=== PATIENT | female | born 1985 | race American Indian/Alaskan Native ===

== ENCOUNTER 2019-04-27 11:18 | Emergency (ER) | payer MEDICAID ==
[2019-04-27 11:31] VITALS: BP 120/82
--- NOTE | 2019-04-27 11:49 | Emergency Department Report ---
Chief Complaint: Pain General Stated Complaint: LEG PAIN Time Seen by Provider: 04/27/19 11:44 - HPI History of Present Illness: 33 y/o female that is 6 months preg comes in complaining of varicoe vein pain that are burning. She discussed with her OB and her PCP. Has not taking anything for pain. Has started compression socks. - Exam Vital Signs: Vital Signs 04/27/19 11:29 Temperature 98.3 F Pulse Rate 74 Respiratory 18 Rate Blood Pressure 120/82 O2 Sat by Pulse 99 Oximetry Physical Exam: AxO times 3 NAD. left leg has several broke veins in the calf no swelling or redness. MSE screening note: Focused history and physical exam performed. Due to findings the following was ordered: Referral to her per OB can take Tylenol for pain ED Disposition for MSE Clinical Impression: Varicose veins of both lower extremities with pain Disposition: Z-07 MED SCREENING EXAM-LEFT Is pt being admited?: No Does the pt Need Aspirin: No Condition: Stable Referrals: KIRSTEN DOS SANTOS MD [Primary Care Provider] - 3-5 Days Your,provider [Other] - 3-5 Days
== END 2019-04-27 11:45 | disposition left against medical advice (07) ==
LOC: ED 11:18
DX: I83.12 Varicose veins of left lower extremity with inflammation (principal); I83.11 Varicose veins of right lower extremity with inflammation; Z88.0 Allergy status to penicillin
CPT/HCPCS: 99282

== ENCOUNTER 2019-07-21 13:09 | Outpatient (CLI) | payer MEDICAID ==
[2019-07-21 13:35] VITALS: BP 130/84
--- NOTE | 2019-07-21 17:12 | Ultrasound Report ---
ULTRASOUND OBSTETRIC Indication: No care Findings: There is a single intrauterine . BPD = 9.1 cm = 36 weeks, 5 day(s). Head circumference = 33.7 cm = 38 weeks, 4 day(s). Abdominal circumference = 35.1 cm = 39 weeks, 0 day(s). Femur length = 7.3 cm = 37 weeks, 2 day(s). Overall estimated sonographic age = 37 weeks, 6 day(s). heart rate is 130 beats per minute. Estimated weight is 3447 grams position is cephalic. Placenta is posterior on maternal left and grade 2 . Amniotic fluid volume appears normal. Amniotic fluid index is 13.4 cm Impression: 1. Single living intrauterine with estimated sonographic age of 37 weeks, 6 day(s). 2. No sonographic abnormality identified. Signer Name: Anibal Espino MD Signed: 07/21/2019 5:07 PM Workstation Name: [id number]
--- NOTE | 2019-07-21 17:12 | Ultrasound Report ---
Biophysical profile INDICATION: No care COMPARISON: None FINDINGS: breathing movement: 2/2 movement: 2/2 posture and tone: 2/2 Qualitative amniotic fluid volume: 2/2 IMPRESSION: Total score for biophysical profile is 8/8 heart rate is 132 bpm Signer Name: Anibal Espino MD Signed: 07/21/2019 5:08 PM Workstation Name: [id number]
== END 2019-07-21 15:26 | disposition home or self-care (01) ==
LOC: TRG 13:09
PROVIDERS: ATTEND Obstetrics & Gynecology
DX: O47.1 False labor at or after 37 completed weeks of gestation (principal); Z3A.37 37 weeks gestation of pregnancy; Z87.891 Personal history of nicotine dependence
CPT/HCPCS: 76816; 76819

== ENCOUNTER 2019-07-23 14:05 | Outpatient (CLI) | payer MEDICAID ==
[2019-07-23 15:45] VITALS: BP 131/86
== END 2019-07-23 16:06 | disposition home or self-care (01) ==
LOC: TRG 14:05
PROVIDERS: ATTEND Obstetrics & Gynecology
DX: O47.1 False labor at or after 37 completed weeks of gestation (principal); Z3A.30 30 weeks gestation of pregnancy
CPT/HCPCS: 59025

== ENCOUNTER 2019-07-23 20:48 | Inpatient (IN) | payer MEDICAID ==
[2019-07-23] MEDS ORDERED: MINERAL OIL 30 ML ORAL LIQD PO PRN (22:17)
[2019-07-23] MEDS ORDERED: ePHEDrine SULFATE 50 MG/1 ML INJ IV PRN (22:17)
[2019-07-23] MEDS ORDERED: TERBUTALINE 1 MG/1 ML INJ SUB-Q PRN (22:17)
[2019-07-23] MEDS ORDERED: TERBUTALINE 1 MG/1 ML INJ IVP PRN (22:17)
[2019-07-23] MEDS ORDERED: FAMOTIDINE 20 MG/2 ML INJ IV ONE (22:21)
[2019-07-23] MEDS ORDERED: BICITRA ORAL LIQD 30ML PO PRN (22:22)
[2019-07-23] MEDS ORDERED: LIDOCAINE (2%) 20 MG/1 ML VIAL 20 ML MDV INFILTRATI ONE (22:37)
[2019-07-23 22:42] LABS: Hematocrit 36.1 % (30.3-42.9); Hemoglobin 12.5 gm/dl (10.1-14.3); Mean Corpuscular HGB Conc 35 % (30-34); Mean Corpuscular Volume 96 fl (79-97); Platelet Count 204 K/mm3 (140-440); Red Blood Count 3.76 M/mm3 (3.65-5.03); Red Cell Distribution Width 13.7 % (13.2-15.2)
[2019-07-23] MEDS ORDERED: OXYTOCIN 20 UNIT/1000ML DRIP 20 UNITS/1,000 ML BAG IV SCH (23:00)
[2019-07-23] MEDS ORDERED: DINOPROSTONE 10 MG VAG SUPP VG ONE (23:17)
[2019-07-24] MEDS ORDERED: BUTORPHANOL 2 MG/1 ML INJ ONE (03:50)
[2019-07-24] MEDS ORDERED: BUTORPHANOL 2 MG/1 ML INJ IV ONE ×2 (03:52→11:08)
[2019-07-24] MEDS: LACTATED RINGERS 1,000 ML IV SCH ×3 (04:00→19:24)
--- NOTE | 2019-07-24 09:21 | History and Physical Report ---
History of Present Illness Date of examination: 07/24/19 Date of admission: 07/23/19 20:48 Chief complaint: Induction of labor History of present illness: 33yo G 6 P 3 0 2 3 @ 40 weeks 3 days here for scheduled IOL. She reports positive movements and uterine contractions. She denies vaginal bleeding or loss of fluid. She is a [facility] patient who initiated care at 6 weeks gestation. Her care was complicated by h/o schizophrenia (managed by [facility]), cigarette smoking, vitamin D deficiency, genital herpes (on suppressive therapy; denies recent outbreak or prodromal symptoms)and varicose veins. LABS: Opos, Antibody Screen neg, RI, VDRL NR, HBsAg neg, HIV neg, MSAFP neg, Diabetes Screen 77, GC/CT/Trich neg, GBS neg. Past History Past Medical History: no pertinent history, other (Schizophrenia, Suicide Attempt) Past Surgical History: no surgical history COMPUTER CONSULTANT History: herpes, other (Ovarian Cyst, Spontaneous ) Family/Genetic History: diabetes, hypertension Social history: single, lives with family, smoking, full code. denies: alcohol abuse, prescription drug abuse, IV drug use - Obstetrical History Expected Date of Delivery: 07/21/19 Actual Gestation: 40 Week(s) 3 Day(s) : 6 Para: 3 Hx # Term Pregnancies: 3 Number of Pregnancies: 0 Spontaneous Abortions: 2 Induced : 0 Number of Living Children: 3 #1 Infant Gender: Male year: 2,[birth year] (06/08/2009) Birthweight: 2.835 kg (6lbs 4oz) Method of Delivery: Vaginal Gestational age at delivery: 40 Complications: none #2 Infant Gender: Female year: 2,010 ([birth year]/08/2010) Birthweight: 2.722 kg (6lbs) Method of Delivery: Vaginal Gestational age at delivery: 42 Complications: none #3 Gender: Female year: 2,015 (11/05/2014) Birthweight: 3.6 kg Method of Delivery: Vaginal Complications: none Medications and Allergies Allergies Allergy/AdvReac Type Severity Reaction Status Date / Time Penicillins Allergy Itching Verified 11/05/14 10:57 FISH Allergy Swelling Uncoded 07/18/19 21:58 Home Medications Medication Instructions Recorded Confirmed Last Taken Type Pnv with Ca,No.72/Iron/FA 1 tab PO DAILY 11/05/14 07/24/19 07/23/19 10:00 History [ Plus Tablet] Valtrex 1,000 mg PO DAILY 07/24/19 07/24/19 07/23/19 History Active Meds: Active Medications Citric Acid/Sodium Citrate (Bicitra) 30 ml PO PRN PRN PRN Reason: Indigestion Ephedrine Sulfate (Ephedrine Sulfate) 10 mg IV Q2M PRN PRN Reason: Hypotension Oxytocin/Sodium Chloride (Pitocin/Ns 20 Unit/1000ml Drip) 20 units in 1,000 mls @ 125 mls/hr IV DIRECT BRANDON Oxytocin/Sodium Chloride (Pitocin/Ns 30 Unit/500ml) 30 units in 500 mls @ 1 mls/hr IV TITR BRANDON; Protocol Lactated Ringer's (Lactated Ringers) 1,000 mls @ 125 mls/hr IV DIRECT BRANDON Last Admin: 07/24/19 09:00 Dose: 1,000 mls/hr Documented by: Mineral Oil (Mineral Oil) 30 ml PO QHS PRN PRN Reason: Constipation Terbutaline Sulfate (Brethine) 0.25 mg SUB-Q ONCE PRN PRN Reason: Hyperstimulation/Hypertonicity Terbutaline Sulfate (Brethine) 0.25 mg IVP ONCE PRN PRN Reason: Hyperstimulation/Hypertonicity Review of Systems All systems: negative - Vital Signs Vital signs: Vital Signs Temp Resp 97.6 F 17 07/23/19 21:13 07/23/19 21:13 Temp Pulse Resp BP Pulse Ox 98.1 F 87 18 120/74 99 07/24/19 08:23 07/24/19 09:02 07/24/19 06:40 07/24/19 08:49 07/24/19 09:02 - Obstetrical FHR: auscultation normal, category 1 FHR comments: baseline 130, moderate variability, 15x15 accels, no decels Cervical Dilatation: 3.5 (per RN) Cervical Effacement Percentage: 60 (per RN) station: -1(per RN) Uterine Contraction Frequency (min): 2 mins Uterine Contraction Pattern: Regular Results Result Diagrams: 07/23/19 21:15 Abnormal lab results 07/23/19 Range/Units 21:15 MCH 33 H (28-32) pg MCHC 35 H (30-34) % All other labs normal. Assessment and Plan - Patient Problems (1) 40 weeks gestation of Current Visit: Yes Status: Acute (2) Encounter for induction of labor Current Visit: Yes Status: Acute Plan to address problem: Admit to L&D with routine labor orders Cervidil for cervical ripening Oxytocin for labor augmentation Anticipate vaginal delivery
[2019-07-24] MEDS ORDERED: BUPIVACAINE/PF (0.25%) 2.5 MG/ML 10 ML VIAL INFILTRATI ONE ×2 (09:50→19:11)
[2019-07-24] MEDS ORDERED: fentaNYL 100 MCG/2 ML INJ ONE ×2 (09:50→19:11)
[2019-07-24] MEDS ORDERED: NALOXONE 2 MG/2 ML INJ IV PRN (12:00)
[2019-07-24] MEDS ORDERED: ePHEDrine SULFATE 50 MG/1 ML INJ IV PRN (12:00)
--- NOTE | 2019-07-24 12:06 | Anesthesia Day of Surgery ---
Anesthesia Day of Surgery - Day of Surgery Patient Examined: Yes Patient H&P Reviewed: Yes Patient is NPO: Yes
[2019-07-24] MEDS: fentaNYL-BUPIV 2 MCG/ML-0.125% 200 MCG/100 ML BAG EPIDURAL SCH ×2 (12:24→19:10)
[2019-07-24] MEDS: OXYTOCIN DRIP 30 UNITS/500 ML BAG IV SCH ×2 (13:58→14:00)
--- NOTE | 2019-07-24 18:28 | Event Note ---
Date: 07/24/19 Assumed care of patient. Nurse states patient's water just broke and fluid is clear. Patient is having labor induced with Pitocin. She has an epidural and is comfortable. Category 1 heart rate tracing. SVE 3-4/60/-2 to -3. Clear fluid, moderate amount, seen on chux pad and seen coming from vagina. No lesions noted on careful exam with bright light.
[2019-07-24] MEDS ORDERED: SODIUM CHLORIDE 0.9% 1000 ML 1,000 ML ONE (20:08)
--- NOTE | 2019-07-24 21:27 | Event Note ---
Date: 07/24/19 SVE /-1.
[2019-07-25] MEDS ORDERED: WITCH HAZEL/ GLYCERIN PAD TP PRN (00:46)
[2019-07-25] MEDS ORDERED: LANOLIN/ZINC/DIMETHICONE (LANSINOH) 7 GM TP PRN (00:46)
--- NOTE | 2019-07-25 01:17 | Procedure Note ---
OB Delivery Note - Delivery Date of Delivery: 07/25/19 Surgeon: FANG HOBBS Estimated blood loss: other (250 cc) - Vaginal Delivery presentation: vertex Delivery position: OA Intrapartum events: other(please specify) (deep variable FHR decelerations just prior to delivery) Delivery induction: oxytocin Delivery monitor: external FHT, external uterine, internal uterine Route of delivery: Delivery placenta: spontaneous Delivery cord: 3 umbilical vessels Episiotomy: none Delivery laceration: none Anesthesia: epidural Delivery comments: Spontaneous vaginal delivery at 23:40 of liveborn female infant weighing 7 lb. 4 oz. with apgars of 8/9. Epidural anesthesia. Baby placed immediately skin to skin with mom after delivery. Spontaneous cry and respirations. 3 vessel cord double clamped and cut after cessation of pulsation. Cord blood obtained. Spontaneous delivery of intact placenta and membranes by lopez mechanism. EBL 250 cc. Pitocin to IV fluids after delivery of placenta. No lacerations noted. Vaginal sweep negative. Sponge count correct. Mother and baby stable in birthing room.
--- NOTE | 2019-07-25 10:05 | Post Anesthesia Evaluation ---
- Post Anesthesia Evaluation Patient Participated: Yes Airway Patent: Yes Stable Respiratory Function: Yes Nausea/Vomiting: No Temp > 96.8F: Yes Pain Manageable: Yes Adequeate Hydration: Yes Anesthesia Complications: No Block Receding Appropriately: Yes Patient on Ventilator: No
--- NOTE | 2019-07-25 10:17 | Progress Note ---
Assessment and Plan A: day 1 S/P spontaneous vaginal delivery. P: Check H&H later today. Recheck blood pressure (mildly elevated; pt. states was cramping earlier). If patient continues to do well, anticipate discharge tomorrow. Social service/case management consult before discharge. Subjective - Subjective Date of service: 07/25/19 Principal diagnosis: day 1 S/P Interval history: day 1 S/P spontaneous vaginal delivery. Doing well. Patient reports small amount of lochia. She is voiding without difficulty, ambulating well, tolerating a regular diet without nausea or vomiting. Patient denies headache, dizziness, chest pain, leg pain, abdominal pain, shortness of breath, nausea/vomiting, or heavy bleeding. . Patient reports: appetite normal, voiding normally, pain well controlled, flatus, ambulating normally, no dizzy ambulation, no bowel movement, no nauseated [place]: doing well Objective - Vital Signs Latest vital signs: Vital Signs Temp Pulse Resp BP BP BP Pulse Ox 07/25/19 07:11 98.7 F 20 L 20 126/91 98 07/25/19 02:48 97.6 F 20 139/88 97 07/25/19 01:33 100 H 120/66 07/25/19 01:18 86 127/80 07/25/19 01:03 86 124/69 07/25/19 00:48 98 H 129/73 07/25/19 00:41 100 H 127/80 07/24/19 23:48 116/60 07/24/19 23:18 91 H 120/76 07/24/19 21:39 96 H 113/60 07/24/19 21:23 97 H 100 07/24/19 21:18 95 H 97 07/24/19 21:13 90 96 07/24/19 21:08 89 98 07/24/19 21:03 90 97 07/24/19 20:58 102 H 97 07/24/19 20:53 94 H 98 07/24/19 20:48 95 H 97 07/24/19 20:43 88 122/87 07/24/19 20:42 103 H 98 07/24/19 20:37 85 99 07/24/19 20:32 90 99 07/24/19 20:27 95 H 100 07/24/19 20:22 90 98 11/15/19 20:17 84 99 15/19 20:12 86 99 15/19 20:07 87 99 15/19 20:02 83 98 15/19 19:57 85 98 15/19 19:52 94 H 98 15/19 19:46 94 H 95 15/19 19:41 86 96 15/19 19:36 99 H 95 15/19 19:31 90 96 15/19 19:30 95 H 123/77 93 15/19 19:26 98 H 97 15/19 19:21 96 H 96 15/19 19:16 88 97 15/19 19:11 98 H 98 15/19 19:06 96 H 96 15/19 19:01 110 H 96 15/19 18:56 98 H 98 15/19 18:51 108 H 98 15/19 18:46 97 H 98 15/19 18:41 95 H 99 15/19 18:36 89 98 15/19 18:31 89 98 15/19 18:26 96 H 98 15/19 18:21 103 H 99 15/19 18:16 103 H 99 15/19 18:11 93 H 99 15/19 18:06 109 H 100 15/19 18:01 106 H 99 15/19 17:56 89 99 15/19 17:51 92 H 99 15/19 17:46 89 100 15/19 17:45 93 H 122/72 15/19 17:41 93 H 99 15/19 17:36 89 97 15/19 17:31 89 97 15/19 17:26 96 H 98 15/19 17:21 97 H 97 15/19 17:16 89 98 15/19 17:11 85 100 15/19 17:06 91 H 98 15/19 17:01 110 H 99 15/19 16:56 112 H 99 15/19 16:51 88 97 15/19 16:46 93 H 100 15/19 16:41 94 H 100 15/19 16:36 102 H 100 11/15/19 16:33 94 H 111/68 11/15/19 16:31 94 H 99 11/15/19 16:26 98 H 99 11/15/19 16:21 89 100 11/15/19 16:16 90 100 /15/19 16:11 124 H 99 /15/19 16:06 87 99 /15/19 16:01 90 98 /15/19 15:56 95 H 98 /15/19 15:51 100 H 98 /15/19 15:46 94 H 99 /15/19 15:41 98 H 100 /15/19 15:36 93 H 100 /15/19 15:31 100 H 100 /15/19 15:26 98 H 100 /15/19 15:22 109 H 94 /15/19 15:21 93 H 118/74 99 /15/19 15:16 107 H 100 /15/19 15:11 89 100 /15/19 15:06 86 100 /15/19 15:01 91 H 98 /15/19 14:56 88 98 /15/19 14:51 86 99 /15/19 14:46 86 99 /15/19 14:41 89 99 /15/19 14:36 97 H 99 /15/19 14:31 91 H 99 /15/19 14:26 86 99 /15/19 14:21 90 100 /15/19 14:16 85 99 /15/19 14:11 87 100 /15/19 14:06 104 H 98 /15/19 14:01 83 99 /15/19 13:56 96 H 99 /15/19 13:51 101 H 99 /15/19 13:46 90 104/65 99 11/15/19 13:44 98.1 F 90 16 104/65 98 /15/19 13:41 86 100 /15/19 13:36 93 H 100 /15/19 13:31 85 100 11/15/19 13:26 85 99 /15/19 13:21 86 100 /15/19 13:16 101 H 98 /15/19 13:11 84 98 /15/19 13:06 90 97 /15/19 13:01 100 H 97 11/15/19 12:56 96 H 97 07/24/19 12:51 104 H 99 07/24/19 12:46 99 H 97 07/24/19 12:41 105 H 98 07/24/19 12:37 92 H 94 07/24/19 12:36 84 100 07/24/19 12:31 87 100 07/24/19 12:26 101 H 95 07/24/19 12:21 107 H 96 07/24/19 12:16 94 H 98 07/24/19 12:11 92 H 99 07/24/19 12:09 113 H 103/67 07/24/19 12:06 104 H 96 07/24/19 12:01 105 H 99 07/24/19 11:54 108 H 99 07/24/19 11:49 95 H 100 07/24/19 11:44 117 H 99 07/24/19 11:40 113 H 123/73 07/24/19 11:39 111 H 100 07/24/19 11:34 107 H 100 07/24/19 11:29 107 H 100 07/24/19 11:24 84 95 07/24/19 11:19 97 H 99 07/24/19 11:14 92 H 100 07/24/19 11:09 89 99 07/24/19 11:04 94 H 99 07/24/19 10:59 94 H 99 07/24/19 10:54 85 97 07/24/19 10:49 88 100 07/24/19 10:44 87 99 07/24/19 10:39 113 H 98 07/24/19 10:37 93 H 134/73 07/24/19 10:34 92 H 99 07/24/19 10:32 96 H 127/80 07/24/19 10:29 100 H 98 07/24/19 10:24 87 99 07/24/19 10:21 88 135/81 07/24/19 10:19 96 H 98 Intake and Output 07/24/19 07/25/19 07/25/19 23:59 07:59 15:59 Intake Total 64.366 Output Total 1650 Balance -1585.634 Intake: IV 64.366 PITOCin/NS 30 UNIT/500ML 64.366 30 units In 500 ml @ 1 MILLIUNITS/MIN 1 mls/hr IV TITR BRANDON Rx#:[id number] Output: Urine 1650 Indwelling Catheter 700 Uretheral (Savage) 950 Other: Total, Output Amount 700 Estimated Blood Loss 250 - Exam Abdomen: Present: normal appearance, soft. Absent: distention, tenderness, guarding, rigidity Uterus: Present: normal, firm, fundal height below umbilicus. Absent: bogginess, tenderness Extremities: Present: normal. Absent: tenderness, edema
[2019-07-25] MEDS: IBUPROFEN 600 MG TAB PO SCH (12:00)
[2019-07-25] MEDS: DOCUSATE SODIUM 100 MG CAP PO SCH ×2 (16:02→22:02)
[2019-07-25] MEDS: FERROUS SULFATE 325 MG TAB PO SCH ×2 (16:02→22:01)
[2019-07-25 16:05] LABS: Hematocrit 32.3 % (30.3-42.9)
[2019-07-25] MEDS: HYDROcodone/ACETAMINOPHEN 5-325 MG TAB PO PRN ×2 (17:20→23:45)
[2019-07-26] MEDS: IBUPROFEN 600 MG TAB PO SCH (00:49)
--- NOTE | 2019-07-26 11:45 | Progress Note ---
Assessment and Plan A: /postop day 2 S/P . Elevated blood pressure. Lower back pain. P: Recheck BP. Preeclamptic labs. Urinalysis and urine C&S. Pain medication (pt. already has ordered). Subjective - Subjective Date of service: 07/26/19 Principal diagnosis: day 2 S/P Interval history: day 2 S/P spontaneous vaginal delivery. Patient reports small amount of lochia. She is voiding without difficulty, ambulating well, tolerating a regular diet without nausea or vomiting. Patient denies cough, dizziness, chest pain, leg pain, abdominal pain, shortness of breath, nausea/vomiting, or heavy bleeding. Patient reports lower back pain and swelling in hands and feet/ankles. BPs have been mildly elevated. Patient reports mild headache earlier this morning, has resolved. Denies visual disturbance. . Patient reports: appetite normal, voiding normally, pain well controlled, flatus, ambulating normally, no dizzy ambulation, no nauseated [place]: doing well Objective - Vital Signs Latest vital signs: Vital Signs Temp Pulse Resp BP BP Pulse Ox 07/26/19 07:15 97.8 F 71 20 134/95 97 07/25/19 23:27 98.2 F 72 20 137/86 99 07/25/19 16:15 98.6 F 92 H 20 129/89 98 07/25/19 13:00 99.2 F 90 20 129/93 98 Intake and Output 07/25/19 07/26/19 07/26/19 23:59 07:59 15:59 Intake Total 360 240 480 Balance 360 240 480 Intake: Oral 360 240 480 Other: Total, Intake Amount 240 240 480 # Voids Void 1 1 1 - Exam Cardiovascular: Present: Regular rate, Normal S1, Normal S2 Lungs: Present: Clear to auscultation Abdomen: Present: normal appearance, soft. Absent: distention, tenderness, guarding, rigidity Uterus: Present: normal, firm, fundal height below umbilicus. Absent: bogginess, tenderness Extremities: Present: normal, edema (mild pedal edema bilaterally). Absent: tenderness
[2019-07-26 12:48] LABS: Basophils # (Auto) 0.1 K/mm3 (0.0-0.1); Basophils % (Auto) 1.2 % (0.0-1.8); Eosinophils # (Auto) 0.1 K/mm3 (0.0-0.4); Hemoglobin 11.5 gm/dl (10.1-14.3); Lymphocytes # (Auto) 2.4 K/mm3 (1.2-5.4); Lymphocytes % (Auto) 26.7 % (13.4-35.0); Mean Corpuscular HGB Conc 34 % (30-34); Mean Corpuscular Volume 98 fl (79-97); Monocytes # (Auto) 0.8 K/mm3 (0.0-0.8); Monocytes % (Auto) 8.6 % (0.0-7.3); Platelet Count 201 K/mm3 (140-440); Red Blood Count 3.47 M/mm3 (3.65-5.03); Red Cell Distribution Width 13.7 % (13.2-15.2)
[2019-07-26 13:05] LABS: Bacteria,Urine 1+ /HPF (Negative); Bilirubin,Urine NEG (Negative); Blood,Urine LG (Negative); Color,Urine Straw (Yellow); Mucus,Urine FEW /HPF; Protein,Urine <15 mg/dL mg/dL (Negative); Urobilinogen,Urine < 2.0 mg/dL (<2.0)
[2019-07-26 13:07] LABS: RBC,Urine > 182.0 /HPF (0.0-6.0)
[2019-07-26 13:35] LABS: Alanine Aminotransferase 17 units/L (7-56); BUN/Creatinine Ratio 14; Blood Urea Nitrogen 10 mg/dL (7-17); Uric Acid 6.3 mg/dL (3.5-7.6)
[2019-07-26 14:01] LABS: Calcium 9.7 mg/dL (8.4-10.2); Hemolysis Index 5
[2019-07-26] MEDS: FERROUS SULFATE 325 MG TAB PO SCH ×2 (16:40→23:04)
[2019-07-26] MEDS: DOCUSATE SODIUM 100 MG CAP PO SCH (16:40)
[2019-07-26] MEDS: HYDROcodone/ACETAMINOPHEN 5-325 MG TAB PO PRN (16:40)
--- NOTE | 2019-07-26 19:16 | Event Note ---
Date: 07/26/19 DBPs elevated. Dependent edema noted. No generalized edema. Pt. denies headache, visual disturbance, N/V, abdominal or epigastric pain. Labetalol po ordered. Platelet count, AST, ALT normal. Informed Dr. Glasgow of [facility] [place] and that I started pt. on Labetalol.
[2019-07-27] MEDS: IBUPROFEN 600 MG TAB PO SCH ×2 (00:26→06:23)
[2019-07-27] MEDS: DOCUSATE SODIUM 100 MG CAP PO SCH ×2 (07:51→13:51)
--- NOTE | 2019-07-27 11:09 | Progress Note ---
Assessment and Plan - Patient Problems (1) Status post normal vaginal delivery Current Visit: Yes Status: Acute Plan to address problem: PPD 3 - stable Discharge to home today Follow up at [facility] as needed or on 07/31/19 for BP check (2) hypertension Current Visit: Yes Status: Acute Plan to address problem: BP 129/93 - asymptomatic PIH labs normal Continue Labetalol 50mg PO BID Subjective - Subjective Date of service: 07/27/19 Principal diagnosis: PPD #3; s/p Interval history: see H&P, Event Notes, OB Delivery Procedure Note and PP/BUSINESS ANALYTICS SPECIALIST progress notes Patient reports: appetite normal, voiding normally, pain well controlled, ambulating normally, other (denies headahe, visual disturbances or RUQ pain), no dizzy ambulation [place]: doing well, nursing well Objective - Vital Signs Latest vital signs: Vital Signs Temp Pulse Resp BP BP Pulse Ox 07/27/19 08:38 99 F 81 20 133/88 07/27/19 02:00 98.1 F 65 20 129/93 98 07/26/19 23:01 71 122/81 07/26/19 16:19 98.5 F 73 20 134/91 99 07/26/19 12:56 98.1 F 78 20 124/92 98 Intake and Output 07/26/19 07/27/19 07/27/19 23:59 07:59 15:59 Intake Total 240 120 Balance 240 120 Intake: Oral 240 120 Other: Total, Intake Amount 240 120 # Voids Void 1 1 # Bowel Movements 1 - Exam Cardiovascular: Present: Regular rate Lungs: Present: Clear to auscultation, Normal air movement Abdomen: Present: normal appearance, soft Vulva: both: normal Uterus: Present: normal, firm, fundal height below umbilicus Extremities: Present: edema (2+) Comments: scant lochia - Labs Labs: Abnormal lab results 07/26/19 07/26/19 07/26/19 Range/Units 12:16 12:16 12:45 RBC 3.47 L (3.65-5.03) M/mm3 MCV 98 H (79-97) fl MCH 33 H (28-32) pg [place] % (Auto) 8.6 H (0.0-7.3) % Chloride 107.7 H (98-107) mmol/L Carbon Dioxide 19 L (22-30) mmol/L Lactate Dehydrogenase 183 H (91-180) units/L Total Protein 5.8 L (6.3-8.2) g/dL Albumin 3.0 L (3.9-5) g/dL Urine WBC (Auto) 10.0 H (0.0-6.0) /HPF
--- NOTE | 2019-07-27 11:15 | Discharge Summary ---
Providers - Providers Date of Admission: 07/23/19 20:48 Date of discharge: 07/27/19 Attending physician: BK NEAL MD 07/25/19 10:17 Consult to Case Management [CONS] Routine Services Needed at Discharge: Ep Tech Notified:: yes Phone number called:: [phone] Was contact made?: Yes If yes, spoke with:: lata Time called:: 15:34 Comment:: see patient chart for orders Additional Physician Instructions: Mental health condition; 07/25/19 14:02 Consult to Mental Health [CONS] Routine Reason For Exam: history of schizphrenia Place consult to:: Mental Health Notified:: Rimma Ngo Primary care physician: BK NEAL MD Hospitalization Reason for admission: induction of labor, IUP at term Delivery: Episiotomy: none Laceration: none Other procedures: none complications: other (hypertension) Discharge diagnosis: IUP at term delivered [place] baby: female Hospital course: complicated by hypertension Condition at discharge: Stable Disposition: DC-01 TO HOME OR SELFCARE - Discharge Diagnoses (1) Status post normal vaginal delivery Status: Acute (2) hypertension Status: Acute Comment: Continue Labetalol 50mg by mouth twice daily Plan - Discharge Medications Prescriptions: labetaloL [Labetalol 100mg TAB] 50 mg PO BID #60 tablet - Provider Discharge Summary Activity: routine, no sex for 6 weeks, no heavy lifting 4 weeks, no strenuous exercise Diet: routine Instructions: routine Additional instructions: [] Smoking cessation referral if applicable(refer to patient education folder for contact #) [] Refer to [facility] Booklet Call your doctor immediately for: * Fever > 100.5 * Heavy vaginal bleeding ( >1 pad per hour) * Severe persistent headache * Shortness of breath * Reddened, hot, painful area to leg or breast * Drainage or odor from incision. * Keep incision clean and dry at all times and follow doctor's instructions regarding bathing/showering - Follow up plan Follow up: BK NEAL MD [Primary Care Provider] - 07/31/19 (Follow up at [facility] as needed or on 07/31/19 for blood pressure check) Forms: [facility] Discharge Summary
[2019-07-27] MEDS: FERROUS SULFATE 325 MG TAB PO SCH (13:51)
[2019-07-27 14:25] VITALS: BP 130/80
== END 2019-07-27 15:00 | disposition home or self-care (01) | DRG 775 ==
LOC: LD 20:48 → OB 07-25 03:05
PROVIDERS: ADMIT Obstetrics & Gynecology; ATTEND Obstetrics & Gynecology
PROC: 10E0XZZ Delivery of Products of Conception, External Approach (ICD-10-PCS; principal; 2019-07-24)
PROC: 3E033VJ Introduction of Other Hormone into Peripheral Vein, Percutaneous Approach (ICD-10-PCS; 2019-07-24)
PROC: 3E0R3BZ Introduction of Anesthetic Agent into Spinal Canal, Percutaneous Approach (ICD-10-PCS; 2019-07-24)
PROC: 00HU33Z Insertion of Infusion Device into Spinal Canal, Percutaneous Approach (ICD-10-PCS; 2019-07-24)
DX: O76 Abnormality in fetal heart rate and rhythm complicating labor and delivery (principal); O10.93 Unspecified pre-existing hypertension complicating the puerperium; O99.334 Smoking (tobacco) complicating childbirth; F17.210 Nicotine dependence, cigarettes, uncomplicated; Z82.49 Family history of ischemic heart disease and other diseases of the circulatory system; Z3A.40 40 weeks gestation of pregnancy; Z37.0 Single live birth; Z83.3 Family history of diabetes mellitus; Z88.0 Allergy status to penicillin; Z79.899 Other long term (current) drug therapy
CPT/HCPCS: 36415; 59025; 59200; 76816; 76819; 80053; 81001; 83615; 84550; 85014; 85018; 85025; 85027; 86592; 86850; 86900; 86901; 87086; G0378; J0595; J2590; J3010; J7030; J7120

== ENCOUNTER 2019-07-31 10:43 | Inpatient (IN) | payer MEDICAID ==
[2019-07-31] MEDS ORDERED: MAGNESIUM SULFATE 4 GM/100 ML BAG IV ONE (12:32)
[2019-07-31] MEDS ORDERED: LACTATED RINGERS 1,000 ML ONE (12:37)
[2019-07-31 12:53] LABS: Hematocrit 31.8 % (30.3-42.9); Hemoglobin 10.6 gm/dl (10.1-14.3); Mean Corpuscular HGB Conc 34 % (30-34); Mean Corpuscular Volume 98 fl (79-97); Platelet Count 336 K/mm3 (140-440); Red Blood Count 3.25 M/mm3 (3.65-5.03); Red Cell Distribution Width 14.1 % (13.2-15.2)
[2019-07-31 13:00] LABS: Bilirubin,Urine NEG (Negative); Blood,Urine SM (Negative); Color,Urine Yellow (Yellow); Protein,Urine <15 mg/dL mg/dL (Negative); Urobilinogen,Urine < 2.0 mg/dL (<2.0)
[2019-07-31] MEDS ORDERED: MAGNESIUM SULFATE 40GM/1000ML 40 GM/1,000 ML BAG IV SCH (13:00)
[2019-07-31 14:05] LABS: Alanine Aminotransferase 100 units/L (7-56); Uric Acid 8.1 mg/dL (3.5-7.6)
[2019-07-31] MEDS ORDERED: ACETAMINOPHEN 325 MG TAB PO PRN (19:41)
[2019-07-31] MEDS ORDERED: ZOLPIDEM 5 MG TAB PO PRN (19:43)
--- NOTE | 2019-07-31 20:25 | History and Physical Report ---
History of Present Illness Date of examination: 07/31/19 Date of admission: 07/31/19 11:08 Chief complaint: Headache, elevated blood pressure History of present illness: 33 year old who was admitted earlier today for preeclampsia. Dr. Longoria has given orders for admission and management of patient's care and has spoken with patient's nurse. requested CNM to do H&P; MD is giving all orders and managing patient's care. Patient had a vaginal delivery of liveborn female over intact perineum on 07/24/19; patient was discharged home several days later on oral Labetalol. Patient returned to the hospital today for admission due to markedly elevated blood pressures and preeclampsia. Earlier today she was started on magnesium sulfate. Patient states she has had a mild headache on and off today. Patient denies visual disturbance, nausea or vomiting, abdominal or epigastric pain. Patient reports swelling in hands and bilateral lower extremities. Patient states she is voiding without difficulty, normal amount. Patient reports a small amount of lochia and no clots. 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 denies: alcohol abuse - Obstetrical History : 6 Para: 4 Hx # Term Pregnancies: 4 Number of Pregnancies: 0 Spontaneous Abortions: 2 Number of Living Children: 4 Medications and Allergies Allergies Allergy/AdvReac Type Severity Reaction Status Date / Time Penicillins Allergy Itching Verified 11/05/14 10:57 FISH Allergy Swelling Uncoded 07/18/19 21:58 Home Medications Medication Instructions Recorded Confirmed Last Taken Type Pnv with Ca,No.72/Iron/FA 1 tab PO DAILY 11/05/14 07/31/19 07/23/19 10:00 History [ Plus Tablet] Valtrex 1,000 mg PO DAILY 07/24/19 07/31/19 07/23/19 History labetaloL [Labetalol 100mg TAB] 50 mg PO BID #60 tablet 07/27/19 07/31/19 Un known Rx Active Meds: Active Medications Acetaminophen (Tylenol) 650 mg PO Q4H PRN PRN Reason: Pain MILD(1-3)/Fever >100.5/FROST Last Admin: 07/31/19 20:15 Dose: 650 mg Documented by: Magnesium Sulfate (Magnesium Sulfate 40gm/1000ml) 40 gm in 1,000 mls @ 50 mls/hr IV DIRECT BRANDON Last Admin: 07/31/19 13:04 Dose: 2 gm/hr, 50 mls/hr Documented by: Lactated Ringer's (Lactated Ringers) 1,000 mls @ 75 mls/hr IV DIRECT BRANDON Labetalol HCl (Labetalol) 100 mg PO BID BRANDON Zolpidem Tartrate (Ambien) 5 mg PO QHS PRN PRN Reason: Sleep Review of Systems All systems: negative (headache, swelling in hands, lower legs, and feet) Cardiovascular: edema, no chest pain, no palpitations, no shortness of breath, no dyspnea on exertion, no decreased exercise tolerance Respiratory: no cough, no shortness of breath, no dyspnea on exertion Gastrointestinal: no abdominal pain, no nausea, no vomiting Neurological: headaches, no lack of coordination - Vital Signs Vital signs: Vital Signs Pulse BP 56 L 183/107 07/31/19 11:58 07/31/19 11:58 Temp Pulse Resp BP Pulse Ox 72 18 141/83 99 07/31/19 20:20 07/31/19 20:15 07/31/19 20:07 07/31/19 20:20 - Physical Exam Cardiovascular: Regular rate, Normal S1, Normal S2, Other (murmur heard) Lungs: Positive: Clear to auscultation Abdomen: Positive: normal appearance, soft. Negative: distention, tenderness, guarding, rigidity Uterus: Positive: normal size. Negative: tender Extremities: Positive: normal, edema (bilateral hand edema and bilateral lower extremity edema). Negative: tenderness Results Result Diagrams: 07/31/19 12:15 07/31/19 12:15 Abnormal lab results 07/31/19 07/31/19 Range/Units 12:15 12:15 RBC 3.25 L (3.65-5.03) M/mm3 MCV 98 H (79-97) fl MCH 33 H (28-32) pg Uric Acid 8.1 H (3.5-7.6) mg/dL AST 60 H (5-40) units/L ALT 100 H (7-56) units/L Lactate Dehydrogenase 223 H (91-180) units/L All other labs normal. Assessment and Plan A: preeclampsia with severe features. Heart murmur. P: Admission orders given by Dr. Longoria. Patient's care is being managed by . Patient is receiving magnesium sulfate and Labetalol. See orders.
[2019-07-31] MEDS ORDERED: LACTATED RINGERS 1,000 ML IV SCH (21:00)
[2019-07-31 21:38] LABS: Alanine Aminotransferase 87 units/L (7-56); Albumin 3.5 g/dL (3.9-5); BUN/Creatinine Ratio 13; Blood Urea Nitrogen 12 mg/dL (7-17); Calcium 8.2 mg/dL (8.4-10.2); Hemolysis Index 53
[2019-08-01 05:06] LABS: Amphetamine Screen,Urine PRESUMPTIVE NEGATIVE; Benzodiazepines Screen,Urine PRESUMPTIVE NEGATIVE; Cannabinoid Screen,Urine PRESUMPTIVE NEGATIVE; Cocaine Screen,Urine PRESUMPTIVE NEGATIVE; Methadone Screen,Urine PRESUMPTIVE NEGATIVE; Opiate Screen,Urine PRESUMPTIVE NEGATIVE
[2019-08-01] MEDS ORDERED: oxyCODONE /ACETAMINOPHEN 5-325MG TAB PO PRN (11:51)
[2019-08-01] MEDS ORDERED: ONDANSETRON 4 MG/2 ML INJ IV PRN (11:52)
[2019-08-01] MEDS ORDERED: WITCH HAZEL/ GLYCERIN PAD TP PRN (11:52)
[2019-08-01] MEDS ORDERED: diphenhydrAMINE 25 MG CAP PO PRN (11:52)
[2019-08-01] MEDS ORDERED: PROMETHAZINE 25 MG TAB PO PRN (11:52)
[2019-08-01] MEDS ORDERED: MAGNESIUM HYDROXIDE (MOM) ORAL LIQD UDC PO PRN (11:52)
[2019-08-01] MEDS ORDERED: ACETAMINOPHEN 325 MG TAB PO PRN (11:52)
[2019-08-01] MEDS ORDERED: PROMETHAZINE 25 MG RECT SUPP PR PRN (11:52)
[2019-08-01] MEDS ORDERED: LANOLIN/ZINC/DIMETHICONE (LANSINOH) 7 GM TP PRN (11:52)
[2019-08-01] MEDS: IBUPROFEN 600 MG TAB PO SCH (14:03)
[2019-08-01 15:05] LABS: Alanine Aminotransferase 73 units/L (7-56)
--- NOTE | 2019-08-01 17:12 | Progress Note ---
Assessment and Plan A: day 8 S/P . preeclampia: BPs improved and Magnesium Sulfate has been discontinued. Heart murmur. P: Move patient to Mother Baby unit per MD order. Continue oral Labetalol. Monitor BPs. Subjective - Subjective Date of service: 08/01/19 Principal diagnosis: day 8; preeclampsia Interval history: Patient was admitted yesterday due to preeclampsia; she received IV Magnesium Sulfate and oral Labetalol. Per Dr. Gutierrez's orders, Magnesium Sulfate has been discontinued and patient is to be transferred to the Mother-Baby unit. Patient states she is feeling much better now. Patient states her headache has resolved and her swelling has improved. Patient denies visual disturbance, nausea or vomiting, abdominal or epigastric pain, chest pain, shortness of breat h, or dizziness. Patient reports scant amount of lochia. Voiding without difficulty. Patient reports: appetite normal, voiding normally, pain well controlled, flatus, ambulating normally, no dizzy ambulation, no nauseated : doing well Objective - Vital Signs Latest vital signs: Vital Signs Temp Pulse Resp BP Pulse Ox 08/01/19 14:51 79 121/77 08/01/19 13:06 88 127/79 08/01/19 12:06 85 134/92 08/01/19 11:07 88 155/93 08/01/19 10:24 85 121/89 08/01/19 10:21 83 99 08/01/19 10:07 75 129/73 08/01/19 09:06 80 137/90 08/01/19 08:07 67 123/73 08/01/19 07:45 98.2 F 84 16 100 08/01/19 07:07 68 116/77 08/01/19 06:06 75 125/84 08/01/19 05:06 75 126/84 08/01/19 04:06 71 112/71 08/01/19 03:07 68 110/68 08/01/19 02:06 73 138/87 08/01/19 01:06 68 124/74 99 08/01/19 01:01 72 98 08/01/19 00:56 71 97 08/01/19 00:51 74 97 08/01/19 00:46 72 96 08/01/19 00:41 72 96 08/01/19 00:36 72 96 08/01/19 00:31 71 96 08/01/19 00:26 73 96 08/01/19 00:21 72 96 08/01/19 00:16 72 96 08/01/19 00:11 70 96 08/01/19 00:06 71 125/76 96 08/01/19 00:01 85 97 07/31/19 23:56 75 97 07/31/19 23:51 74 97 07/31/19 23:46 70 97 07/31/19 23:41 72 96 07/31/19 23:36 74 96 07/31/19 23:31 75 97 07/31/19 23:26 75 97 07/31/19 23:21 73 98 07/31/19 23:16 72 98 07/31/19 23:11 72 98 07/31/19 23:06 90 140/94 100 07/31/19 23:01 84 92 07/31/19 22:56 77 100 07/31/19 22:51 75 100 07/31/19 22:46 77 100 07/31/19 22:41 76 100 07/31/19 22:38 70 87 07/31/19 22:36 82 94 07/31/19 22:32 94 H 87 07/31/19 22:31 88 97 07/31/19 22:26 73 99 07/31/19 22:21 72 135/85 100 07/31/19 22:16 78 100 07/31/19 22:11 76 97 07/31/19 22:07 80 135/85 07/31/19 22:06 75 96 07/31/19 22:01 75 98 07/31/19 21:56 71 98 07/31/19 21:51 75 97 07/31/19 21:46 70 97 07/31/19 21:41 71 98 07/31/19 21:36 69 99 07/31/19 21:31 69 100 07/31/19 21:26 77 100 07/31/19 21:21 75 99 07/31/19 21:16 73 100 07/31/19 21:15 18 07/31/19 21:11 74 100 07/31/19 21:07 71 129/90 07/31/19 21:05 71 100 07/31/19 21:00 70 100 07/31/19 20:55 77 98 07/31/19 20:51 80 94 07/31/19 20:50 68 96 07/31/19 20:45 71 97 07/31/19 20:40 80 100 07/31/19 20:36 83 90 07/31/19 20:35 72 100 07/31/19 20:30 85 100 07/31/19 20:25 79 96 07/31/19 20:20 72 99 07/31/19 20:15 82 18 100 07/31/19 20:10 81 97 07/31/19 20:07 75 141/83 07/31/19 20:05 72 100 07/31/19 20:00 71 100 07/31/19 19:55 77 100 07/31/19 19:50 75 99 07/31/19 19:45 81 99 07/31/19 19:39 71 99 07/31/19 19:34 72 99 07/31/19 19:29 75 100 07/31/19 19:24 76 99 07/31/19 19:19 72 99 07/31/19 19:14 76 99 07/31/19 19:09 73 100 07/31/19 19:07 86 128/85 0 L 07/31/19 19:04 76 99 07/31/19 18:59 78 97 07/31/19 18:54 75 99 07/31/19 18:49 70 99 07/31/19 18:44 74 99 07/31/19 18:17 79 100 07/31/19 18:12 79 100 07/31/19 18:07 69 124/83 100 07/31/19 18:01 80 99 07/31/19 17:56 81 99 07/31/19 17:51 75 100 07/31/19 17:46 77 100 07/31/19 17:41 77 99 07/31/19 17:36 70 99 07/31/19 17:33 81 90 07/31/19 17:31 73 100 07/31/19 17:26 77 100 07/31/19 17:21 71 100 07/31/19 17:16 77 100 07/31/19 17:11 78 99 Intake and Output 08/01/19 08/01/19 08/01/19 07:59 15:59 23:59 Intake Total 600 400 Output Total 3250 600 Balance -2650 -200 Intake: Oral 600 400 Output: Urine 3250 600 Indwelling Catheter 800 600 Uretheral (Savage) 2450 Other: Total, Intake Amount 600 400 Total, Output Amount 800 600 - Exam Cardiovascular: Present: Regular rate, Normal S1, Normal S2, Other (murmur heard) Lungs: Present: Clear to auscultation Abdomen: Present: normal appearance, soft. Absent: distention, tenderness, guarding, rigidity Uterus: Present: normal, firm, fundal height below umbilicus. Absent: bogginess, tenderness Extremities: Present: normal, edema (mild edema of ankles and feet bilaterally). Absent: tenderness - Labs Labs: Abnormal lab results 07/31/19 07/31/19 08/01/19 Range/Units 20:56 20:56 07:34 Calcium 8.2 L (8.4-10.2) mg/dL Magnesium 6.20 H 6.70 H (1.7-2.3) mg/dL AST 47 H (5-40) units/L ALT 87 H (7-56) units/L Albumin 3.5 L (3.9-5) g/dL 08/01/19 Range/Units 13:56 Calcium (8.4-10.2) mg/dL Magnesium (1.7-2.3) mg/dL AST (5-40) units/L ALT 73 H (7-56) units/L Albumin (3.9-5) g/dL
[2019-08-02] MEDS: IBUPROFEN 600 MG TAB PO SCH ×4 (05:32→21:43)
[2019-08-02] MEDS: FERROUS SULFATE 325 MG TAB PO SCH ×3 (05:33→21:43)
--- NOTE | 2019-08-02 09:41 | Progress Note ---
Assessment and Plan A: day 9. preeclampsia. Nasal congestion and cough. P: Flu swab. Medications for symptom relief. Continue Labetalol 200 mg po BID to control BP. Consider discharge tomorrow if patient continues to do well and BPs remain stable. Subjective - Subjective Date of service: 08/02/19 Principal diagnosis: day 9; preeclampsia Interval history: Patient was admitted due to preeclampsia. Magnesium Sulfate was discontinued yesterday. She continues Labetalol 200 mg po BID for control of her BP. BPs have been better with random SBP elevation. Patient states she is feeling a lot better and states her swelling has mostly resolved. Patient reports she thinks she is getting a cold. She reports nasal congestion and yellowish nasal drainage. No fever or chills or body aches. No known exposure to flu. Pt. reports mild headache. Denies visual disturbance, nausea or vomiting, or epigastric pain. Reports she is voiding without difficulty. Patient reports: appetite normal, voiding normally, pain well controlled, flatus, ambulating normally, no dizzy ambulation, no bowel movement, no nauseated : doing well Objective - Vital Signs Latest vital signs: Vital Signs Temp Pulse Resp BP BP Pulse Ox 08/02/19 08:22 20 08/02/19 04:53 98.2 F 69 18 132/85 98 08/02/19 00:55 99.0 F 72 20 151/88 99 08/01/19 21:29 136/89 08/01/19 20:51 97.6 F 79 18 138/92 138/92 08/01/19 14:51 79 121/77 08/01/19 14:05 97.8 F 88 16 99 08/01/19 13:06 88 127/79 08/01/19 12:06 85 134/92 08/01/19 11:07 88 155/93 08/01/19 10:24 85 121/89 08/01/19 10:21 83 99 08/01/19 10:07 75 129/73 Intake and Output 08/01/19 08/02/19 08/02/19 23:59 07:59 15:59 Intake Total 720 Output Total 900 Balance -900 720 Intake: Intake, Free Water 720 Output: Urine 900 Indwelling Catheter 900 Other: Total, Output Amount 900 # Voids Indwelling Catheter 1 Void 1 - Exam Cardiovascular: Present: Regular rate, Normal S1, Normal S2, Other (murmur heard) Lungs: Present: Clear to auscultation Abdomen: Present: normal appearance, soft. Absent: distention, tenderness, guarding, rigidity Uterus: Present: normal, firm, fundal height below umbilicus. Absent: bogginess, tenderness Extremities: Present: normal. Absent: tenderness, edema - Labs Labs: Abnormal lab results 08/01/19 Range/Units 13:56 ALT 73 H (7-56) units/L
[2019-08-02] MEDS: guaiFENesin 100 MG/5 ML ORAL LIQD PO PRN (10:30)
[2019-08-02] MEDS: LORATADINE (NF) 10 MG TAB PO SCH (10:31)
[2019-08-02] MEDS: PRENATAL VIT27-FE FUMARATE-FOLIC ACID VIT TAB PO SCH (10:31)
--- NOTE | 2019-08-02 17:45 | Event Note ---
Date: 08/02/19 Patient's BP is elevated. Patient is already receiving Labetalol 200 mg po BID (last dose was at 10 AM per nurse). Pt. complains of chest discomfort and mild SOB. Chest X-ray and EKG ordered stat. Called Dr. Gutierrez and consulted with him re: patient's BP elevations (177/99) and complaints of chest discomfort and SOB. Informed Dr. Gutierrez that CXR and EKG have been ordered. Dr. Gutierrez orders to start Procardia 30 mg po daily. Orders put into computer and patient's nurse notified. Informed patient of plan of care. No other orders received from Dr. Gutierrez.
[2019-08-02] MEDS: NIFEdipine XL 30 MG TAB PO SCH (18:05)
--- NOTE | 2019-08-02 18:58 | XRay Report ---
CHEST 2 VIEWS INDICATION / CLINICAL INFORMATION: chest pain. COMPARISON: None available. FINDINGS: SUPPORT DEVICES: None. HEART / MEDIASTINUM: No significant abnormality. LUNGS / PLEURA: No significant pulmonary or pleural abnormality. No pneumothorax. ADDITIONAL FINDINGS: No significant additional findings. IMPRESSION: 1. No acute abnormality of the chest. Signer Name: Ian Briones MD Signed: 08/02/2019 6:54 PM Workstation Name: [id number]
[2019-08-02 20:47] LABS: Alanine Aminotransferase 48 units/L (7-56); Albumin 3.3 g/dL (3.9-5); BUN/Creatinine Ratio 14; Blood Urea Nitrogen 13 mg/dL (7-17); Calcium 8.7 mg/dL (8.4-10.2); Hemolysis Index 44
--- NOTE | 2019-08-02 21:57 | Event Note ---
Date: 08/02/[address] Gutierrez re: patient's BPs, chest x-ray result, and EKG result and that patient states her chest pain has now resolved and she no longer has SOB. No new orders received from Dr. Gutierrez.
[2019-08-03] MEDS: IBUPROFEN 600 MG TAB PO SCH ×2 (05:46→07:44)
[2019-08-03] MEDS: guaiFENesin 100 MG/5 ML ORAL LIQD PO PRN (07:44)
[2019-08-03] MEDS: PRENATAL VIT27-FE FUMARATE-FOLIC ACID VIT TAB PO SCH (09:41)
[2019-08-03] MEDS: NIFEdipine XL 30 MG TAB PO SCH (09:41)
[2019-08-03] MEDS: LORATADINE (NF) 10 MG TAB PO SCH (09:42)
[2019-08-03] MEDS: FERROUS SULFATE 325 MG TAB PO SCH (09:45)
--- NOTE | 2019-08-03 12:08 | Progress Note ---
Assessment and Plan - Patient Problems (1) Severe pre-eclampsia, Current Visit: Yes Status: Acute Plan to address problem: BPs 122/70, 120/79, 146/89, 129/77 Mild chest discomfort still present - neg flu test, neg chest x-ray, normal EKG s/p magnesium sulfate therapy On Labetalol 200mg PO BID and Procardia XL 30mg PO qd Discharge to home today Encouraged low-salt diet Follow up at [facility] as needed or in 1 week for blood pressure check (2) Status post normal vaginal delivery Current Visit: No Status: Acute Subjective - Subjective Date of service: 08/03/19 Principal diagnosis: Pre-eclampsia; s/p x10 days Interval history: see H&P, PP/HARDWARE ENGINEER Progress Notes and Event Notes Patient reports: appetite normal, voiding normally, pain well controlled, ambulating normally, other (mild chest discomfort. Denies headache or visual disturbances), no dizzy ambulation : doing well Objective - Vital Signs Latest vital signs: Vital Signs Temp Pulse Resp BP BP Pulse Ox 08/03/19 09:42 68 129/77 08/03/19 08:23 99.1 F 58 L 18 146/89 98 08/03/19 07:44 20 08/03/19 04:00 98.6 F 74 18 120/79 08/03/19 00:00 98.8 F 75 16 122/70 08/02/19 22:43 18 08/02/19 21:46 70 133/82 08/02/19 21:45 133/82 08/02/19 21:43 18 08/02/19 20:37 18 147/89 08/02/19 19:30 98.8 F 74 18 135/86 08/02/19 18:06 60 159/97 08/02/19 17:10 177/99 08/02/19 16:41 98.4 F 59 L 18 158/95 100 08/02/19 16:25 20 Intake and Output 08/02/19 08/03/19 08/03/19 23:59 07:59 15:59 Intake Total 1140 240 Balance 1140 240 Intake: Oral 480 240 Intake, Free Water 660 Other: Total, Intake Amount 480 240 # Voids Void 4 1 1 - Exam Cardiovascular: Present: Regular rate Lungs: Present: Clear to auscultation, Normal air movement Abdomen: Present: normal appearance, soft Vulva: both: normal Uterus: Present: normal, firm, fundal height below umbilicus Extremities: Present: normal Comments: scant lochia - Labs Labs: Abnormal lab results 08/02/19 Range/Units 19:51 Sodium 135 L (137-145) mmol/L Carbon Dioxide 17 L (22-30) mmol/L Total Protein 6.2 L (6.3-8.2) g/dL Albumin 3.3 L (3.9-5) g/dL
--- NOTE | 2019-08-03 12:20 | Discharge Summary ---
Providers - Providers Date of Admission: 07/31/19 11:08 Date of discharge: 08/03/19 Attending physician: BK NEAL MD Primary care physician: BK NEAL MD Hospitalization Reason for admission: other (severe pre-eclampsia) Delivery: complications: other (pre-eclampsia) Discharge diagnosis: IUP at term delivered baby: female Hospital course: Complicated by severe pre-eclampsia Condition at discharge: Stable Disposition: DC-01 TO HOME OR SELFCARE - Discharge Diagnoses (1) Severe pre-eclampsia, Status: Acute Comment: Continue Labetalol 100mg by mouth twice daily and Procardia XL 30mg by mouth once daily (2) Status post normal vaginal delivery Status: Acute Plan - Discharge Medications Prescriptions: labetaloL [Labetalol 200mg TAB] 200 mg PO BID #60 tablet NIFEdipine XL [Procardia Xl] 30 mg PO QDAY #30 tablet - Provider Discharge Summary Activity: routine, no sex for 6 weeks, no heavy lifting 4 weeks, no strenuous exercise Diet: routine Instructions: routine Additional instructions: [] Smoking cessation referral if applicable(refer to patient education folder for contact #) [] Refer to [facility]'s [facility] Booklet Call your doctor immediately for: * Fever > 100.5 * Heavy vaginal bleeding ( >1 pad per hour) * Severe persistent headache * Shortness of breath * Reddened, hot, painful area to leg or breast * Drainage or odor from incision. * Keep incision clean and dry at all times and follow doctor's instructions regarding bathing/showering - Follow up plan Follow up: BK NEAL MD [Primary Care Provider] - 7 Days (Follow up at [facility] as needed or in 1 week for blood pressure check) Forms: [facility] Discharge Summary
[2019-08-03 13:40] VITALS: BP 106/71
== END 2019-08-03 13:45 | disposition home or self-care (01) | DRG 776 ==
LOC: 3A 10:43 → UNDOADMIN 10:43 → LD 11:08 → OB 08-01 21:38
PROVIDERS: ADMIT Obstetrics & Gynecology; ATTEND Obstetrics & Gynecology
DX: O14.15 Severe pre-eclampsia, complicating the puerperium (principal)
CPT/HCPCS: 36415; 71046; 80053; 80307; 81001; 82565; 83615; 83735; 84450; 84460; 84550; 85027; 85049; 87400; 93005; 93010; G0378; J3475; J7120

== ENCOUNTER 2019-09-18 15:42 | Emergency (ER) | payer MEDICAID ==
--- NOTE | 2019-09-18 16:50 | Event Note ---
ED Screening Note Date of service: 09/18/19 Time: 16:46 ED Screening Note: 34 y/o female comes in for HTN. Currently taking Labetalol 100mg. Last doctor visit 09/07/19. Small headache with a little chest pain. History of Preclampsia. Last delivered 07/24/19. This initial assessment/diagnostic orders/clinical plan/treatment(s) is/are subject to change based on patients health status, clinical progression and re- assessment by fellow clinical providers in the ED. Further treatment and workup at subsequent clinical providers discretion. Patient/guardian urged not to elope from the ED as their condition may be serious if not clinically assessed and managed. Initial orders include:
[2019-09-18 17:17] LABS: Basophils # (Auto) 0.1 K/mm3 (0.0-0.1); Basophils % (Auto) 1.5 % (0.0-1.8); Eosinophils # (Auto) 0.1 K/mm3 (0.0-0.4); Eosinophils % (Auto) 0.9 % (0.0-4.3); Hematocrit 38.9 % (30.3-42.9); Hemoglobin 13.1 gm/dl (10.1-14.3); Lymphocytes # (Auto) 2.9 K/mm3 (1.2-5.4); Lymphocytes % (Auto) 37.2 % (13.4-35.0); Mean Corpuscular HGB Conc 34 % (30-34); Mean Corpuscular Volume 96 fl (79-97); Monocytes # (Auto) 0.5 K/mm3 (0.0-0.8); Monocytes % (Auto) 6.2 % (0.0-7.3); Platelet Count 247 K/mm3 (140-440); Red Blood Count 4.05 M/mm3 (3.65-5.03); Red Cell Distribution Width 13.3 % (13.2-15.2)
[2019-09-18 17:44] LABS: Alanine Aminotransferase 21 units/L (7-56); Albumin 4.2 g/dL (3.9-5); BUN/Creatinine Ratio 13; Blood Urea Nitrogen 10 mg/dL (7-17); Calcium 9.2 mg/dL (8.4-10.2); Hemolysis Index 6
--- NOTE | 2019-09-18 17:56 | Emergency Department Report ---
<LAINEY CORONADO - Last Filed: 09/18/19 20:41> ED Chest Pain HPI - General Chief Complaint: High BP Stated Complaint: TIGHT IN CHEST/HBP/HEADACHE Time Seen by Provider: 09/18/19 16:44 - Related Data Home Medications Medication Instructions Recorded Confirmed Last Taken Pnv with Ca,No.72/Iron/FA 1 tab PO DAILY 11/05/14 07/31/19 07/23/19 10:00 [ Plus Tablet] Valtrex 1,000 mg PO DAILY 07/24/19 07/31/19 07/23/19 Previous Rx's Medication Instructions Recorded Last Taken Type NIFEdipine XL [Procardia Xl] 30 mg PO QDAY #30 tablet 08/03/19 Unknown Rx labetaloL [Labetalol 200mg TAB] 200 mg PO BID #60 tablet 08/03/19 Unknown Rx hydrALAZINE [Apresoline TAB] 10 mg PO Q8H #90 tablet 09/18/19 Unknown Rx labetaloL [Labetalol 100mg TAB] 100 mg PO BID #60 tablet 09/18/19 Unknown Rx Allergies Allergy/AdvReac Type Severity Reaction Status Date / Time Penicillins Allergy Itching Verified 11/05/14 10:57 FISH Allergy Swelling Uncoded 07/18/19 21:58 ED Past Medical Hx - Medications Home Medications: Home Medications Medication Instructions Recorded Confirmed Last Taken Type Pnv with Ca,No.72/Iron/FA 1 tab PO DAILY 11/05/14 07/31/19 07/23/19 10:00 History [ Plus Tablet] Valtrex 1,000 mg PO DAILY 07/24/19 07/31/19 07/23/19 History NIFEdipine XL [Procardia Xl] 30 mg PO QDAY #30 tablet 08/03/19 Unknown Rx labetaloL [Labetalol 200mg TAB] 200 mg PO BID #60 tablet 08/03/19 Unknown Rx hydrALAZINE [Apresoline TAB] 10 mg PO Q8H #90 tablet 09/18/19 Unknown Rx labetaloL [Labetalol 100mg TAB] 100 mg PO BID #60 tablet 09/18/19 Unknown Rx ED Medical Decision Making - Lab Data Result diagrams: 09/18/19 17:04 09/18/19 17:04 - EKG Data EKG shows normal: sinus rhythm, axis, intervals, QRS complexes, ST-T waves Rate: bradycardia - Radiology Data Radiology results: report reviewed, image reviewed CHEST 1 VIEW 09/18/2019 6:10 PM INDICATION / CLINICAL INFORMATION: chest pain. COMPARISON: Chest x-ray 08/02/2019 FINDINGS: SUPPORT DEVICES: None. HEART / MEDIASTINUM: No significant abnormality. LUNGS / PLEURA: No significant pulmonary or pleural abnormality. No pneumothorax. ADDITIONAL FINDINGS: No significant additional findings. IMPRESSION: 1. No acute findings. Signer Name: Kenneth Payton MD Signed: 09/18/2019 6:19 PM Workstation Name: [id number] Transcribed By: Dictated By: Kenneth Payton MD Electronically Authenticated By: Kenneth Payton MD Signed Date/Time: 09/18/191818 - Medical Decision Making signed out by Missy Casanova at 6:10 PM pending labs, EKG, CXR ED Disposition Clinical Impression: hypertension Disposition: - TO HOME OR SELFCARE Is pt being admited?: No Does the pt Need Aspirin: No Condition: Stable Instructions: Hypertension (ED) Additional Instructions: Please take medication as prescribed. Please increase your water intake. Please eat a low-sodium diet. Take your blood pressure 3 times a day and keep a blood pressure log and take this to your doctor. Please follow-up with your [facility] in the next 2-3 days for reexamination. Return to the emergency room for any new or worsening symptoms. Prescriptions: hydrALAZINE [Apresoline TAB] 10 mg PO Q8H #90 tablet labetaloL [Labetalol 100mg TAB] 100 mg PO BID #60 tablet Referrals: [facility] [Provider Group] - 2-3 Days Time of Disposition: 20:42 Print Language: CITIZEN OF [place] <MISSY CASANOVA - Last Filed: 09/22/19 11:02> ED Chest Pain HPI - General Source: patient Mode of arrival: Ambulatory Limitations: No Limitations - History of Present Illness Initial Comments: 34 yo AA female comes to ER with chest pain and htn. She was induced on 07/23 due to pre-eclampsia. This was her 4rth child and the first she has had htn with. PMH eczema heart murmur PSH none Rx labetaolol valtrex prn vitamin The baby was born without difficulty at term; mother is breast feeding OB [facility] and [facility] importance pt has had 1 admit post already for persistently inc BP-- 07/31 She followed up with OB 09/07 and her BP was high but not as high today. They did not refill her procardia. They only have her on labetolol 100 mg BID. (she had been on 200 mg BID 08/03) No headache. Neuro intact on exam. MD Complaint: chest pain -: Gradual, week(s) Onset: during rest, during exertion Pain Location: substernal, left chest Pain Radiation: none Severity: mild Severity scale (0 -10): 2 Quality: tightness Consistency: intermittent Improves With: nothing Worsens With: nothing Context: other (post induced -) Other Symptoms: denies: cough, fever, syncope, rash, acid taste in mouth, leg swelling, palpitations, burping Treatments Prior to Arrival: none Aspirin use within the Past 7 Days: (0) No - Related Data On Oral Contraceptives: No Heart Score - HEART Score History: Slightly suspicious EKG: Normal Age: < 45 Risk factors: 1-2 risk factors Troponin: < normal limit HEART Score: 1 ED Review of Systems ROS: Stated complaint: TIGHT IN CHEST/HBP/HEADACHE Other details as noted in HPI Comment: All other systems reviewed and negative ED Past Medical Hx - Past Medical History Hx Hypertension: No Hx CVA: No Hx Heart Attack/AMI: No Hx Congestive Heart Failure: No Hx Diabetes: No Hx Deep Vein Thrombosis: No Hx Pulmonary Embolism: No Hx GERD: No Hx Liver Disease: No Hx Renal Disease: No Hx of Cancer: No Hx Sickle Cell Disease: No Hx Arthritis: No Hx Headaches / Migraines: No Hx Seizures: No Hx Kidney Stones: No Hx Psychiatric Treatment: No Hx Asthma: No Hx COPD: No Hx Tuberculosis: No Hx Dementia: No Hx HIV: No - Surgical History Past Surgical History?: No - Family History Family history: no significant - Social History Smoking Status: Never Smoker Substance Use Type: None ED Physical Exam - General Limitations: No Limitations General appearance: alert, in no apparent distress - Head Head exam: Present: atraumatic, normocephalic - Eye Eye exam: Present: normal appearance - ENT ENT exam: Present: mucous membranes moist - Neck Neck exam: Present: normal inspection - Respiratory Respiratory exam: Present: normal lung sounds bilaterally. Absent: respiratory distress - Cardiovascular Cardiovascular Exam: Present: regular rate, normal rhythm. Absent: systolic murmur, diastolic murmur, rubs, gallop - GI/Abdominal GI/Abdominal exam: Present: soft, normal bowel sounds - Extremities Exam Extremities exam: Present: normal inspection - Back Exam Back exam: Present: normal inspection - Neurological Exam Neurological exam: Present: alert, oriented X3 - Psychiatric Psychiatric exam: Present: normal affect, normal mood - Skin Skin exam: Present: warm, dry, intact, normal color. Absent: rash ED Course Vital Signs 09/18/19 09/18/19 09/18/19 16:44 17:20 18:12 Temperature 98.2 F Pulse Rate 55 L 56 L 56 L Respiratory 20 17 18 Rate Blood Pressure 160/108 Blood Pressure 161/111 162/102 [Left] O2 Sat by Pulse 98 100 99 Oximetry 09/18/19 09/18/19 19:20 20:24 Temperature 98.3 F Pulse Rate 61 57 L Respiratory 18 18 Rate Blood Pressure 165/103 Blood Pressure 165/103 147/103 [Left] O2 Sat by Pulse 98 99 Oximetry VICTOR MANUEL score - Victor Manuel Score Age > 65: (0) No Aspirin use within the Past 7 Days: (0) No 3 or more CAD Risk Factors: (0) No 2 or more Angina events in past 24 hrs: (0) No Known CAD with more than 50% Stenosis: (0) No Elevated Cardiac Markers: (0) No ST Deviation Greater than 0.5mm: (0) No VICTOR MANUEL Score: 0 ED Medical Decision Making - Lab Data Result diagrams: 09/18/19 17:04 09/18/19 17:04 - EKG Data -: EKG Interpreted by Ak - Radiology Data Radiology results: report reviewed, image reviewed - Medical Decision Making PLAN LABS/TROP 12 LEAD CHEST XRAY 1800 ABOVE PENDING - Differential Diagnosis post 07/23- with persistent htn Critical care attestation.: If time is entered above; I have spent that time in minutes in the direct care of this critically ill patient, excluding procedure time.
[2019-09-18 18:17] LABS: Bilirubin,Urine NEG (Negative); Blood,Urine NEG (Negative); Color,Urine Yellow (Yellow); Mucus,Urine FEW /HPF; Protein,Urine <15 mg/dL mg/dL (Negative); Urobilinogen,Urine < 2.0 mg/dL (<2.0)
--- NOTE | 2019-09-18 18:24 | XRay Report ---
CHEST 1 VIEW 09/18/2019 6:10 PM INDICATION / CLINICAL INFORMATION: chest pain. COMPARISON: Chest x-ray 08/02/2019 FINDINGS: SUPPORT DEVICES: None. HEART / MEDIASTINUM: No significant abnormality. LUNGS / PLEURA: No significant pulmonary or pleural abnormality. No pneumothorax. ADDITIONAL FINDINGS: No significant additional findings. IMPRESSION: 1. No acute findings. Signer Name: Kenneth Payton MD Signed: 09/18/2019 6:19 PM Workstation Name: [id number]
[2019-09-18 20:25] VITALS: BP 147/103
== END 2019-09-18 20:55 | disposition home or self-care (01) ==
LOC: ED 15:42
DX: O16.5 Unspecified maternal hypertension, complicating the puerperium (principal); Z79.899 Other long term (current) drug therapy; Z88.0 Allergy status to penicillin; Z91.013 Allergy to seafood
CPT/HCPCS: 36415; 71045; 80053; 81001; 83735; 84484; 85025; 93005; 93010

== ENCOUNTER 2021-07-21 10:22 | Emergency (ER) | payer SELFPAY ==
--- NOTE | 2021-07-21 11:24 | Emergency Department Report ---
ED General Adult HPI - General Chief complaint: Pain General Stated complaint: KIDNEY PAINS Time Seen by Provider: 07/21/21 10:59 Source: patient Mode of arrival: Ambulatory Limitations: No Limitations - History of Present Illness Initial comments: 35-year-old -[place] female patient presents with complaints of vaginal discharge and lower abdominal cramping x1 week. She also admits to urinary frequency and states she believes she may have an STI. No abdominal pain at current per patient. She denies any vaginal bleeding or dyspareunia or f ever/chills/sweats. No past medical history per patient. She also states pain bilaterally to her lower rib area anteriorly that occurs only with bending her thorax. She denies any chest pain or shortness of breath or cough. No recent long travel, hemoptysis, leg pain/swelling, hormone use, or history of DVT/PE/cancer per patient -: Sudden - Related Data Home Medications Medication Instructions Recorded Confirmed Last Taken Pnv with Ca,No.72/Iron/FA 1 tab PO DAILY 11/05/14 07/31/19 07/23/19 10:00 [ Plus Tablet] Valtrex 1,000 mg PO DAILY 07/24/19 07/31/19 07/23/19 Previous Rx's Medication Instructions Recorded Last Taken Type NIFEdipine XL [Procardia Xl] 30 mg PO QDAY #30 tablet 08/03/19 Unknown Rx labetaloL [Labetalol 200mg TAB] 200 mg PO BID #60 tablet 08/03/19 Unknown Rx hydrALAZINE [Apresoline TAB] 10 mg PO Q8H #90 tablet 09/18/19 Unknown Rx labetaloL [Labetalol 100mg TAB] 100 mg PO BID #60 tablet 09/18/19 Unknown Rx Doxycycline Monohydrate 100 mg PO BID 7 Days #14 capsule 07/21/21 Unknown Rx [Doxycycline Monohydrate CAP] Fluconazole [Diflucan TAB] 200 mg PO QDAY PRN #1 tablet 07/21/21 Unknown Rx metroNIDAZOLE [Flagyl TAB] 500 mg PO Q12HR 7 Days #14 tab 07/21/21 Unknown Rx Allergies Allergy/AdvReac Type Severity Reaction Status Date / Time Penicillins Allergy Mild Itching Verified 07/21/21 12:43 FISH Allergy Swelling Uncoded 07/21/21 12:43 ED Review of Systems ROS: Stated complaint: KIDNEY PAINS Other details as noted in HPI Constitutional: denies: chills, fever, malaise Respiratory: denies: cough, shortness of breath Cardiovascular: denies: chest pain Gastrointestinal: abdominal pain. denies: nausea, vomiting Genitourinary: frequency. denies: hematuria Musculoskeletal: denies: joint swelling, arthralgia Skin: denies: rash, lesions, change in color Hematological/Lymphatic: denies: swollen glands ED Past Medical Hx - Past Medical History Previous Medical History?: Yes Hx Hypertension: No Hx CVA: No Hx Heart Attack/AMI: No Hx Congestive Heart Failure: No Hx Diabetes: No Hx Deep Vein Thrombosis: No Hx Pulmonary Embolism: No Hx GERD: No Hx Liver Disease: No Hx Renal Disease: No Hx Sickle Cell Disease: No Hx Arthritis: No Hx Headaches / Migraines: No Hx Seizures: No Hx Kidney Stones: No Hx Psychiatric Treatment: No Hx Asthma: No Hx COPD: No Hx Tuberculosis: No Hx Dementia: No Hx HIV: No - Surgical History Past Surgical History?: No - Social History Smoking Status: Never Smoker Substance Use Type: None - Medications Home Medications: Home Medications Medication Instructions Recorded Confirmed Last Taken Type Pnv with Ca,No.72/Iron/FA 1 tab PO DAILY 11/05/14 07/31/19 07/23/19 10:00 History [ Plus Tablet] Valtrex 1,000 mg PO DAILY 07/24/19 07/31/19 07/23/19 History NIFEdipine XL [Procardia Xl] 30 mg PO QDAY #30 tablet 08/03/19 Unknown Rx labetaloL [Labetalol 200mg TAB] 200 mg PO BID #60 tablet 08/03/19 Unknown Rx hydrALAZINE [Apresoline TAB] 10 mg PO Q8H #90 tablet 09/18/19 Unknown Rx labetaloL [Labetalol 100mg TAB] 100 mg PO BID #60 tablet 09/18/19 Unknown Rx Doxycycline Monohydrate 100 mg PO BID 7 Days #14 capsule 07/21/21 Unknown Rx [Doxycycline Monohydrate CAP] Fluconazole [Diflucan TAB] 200 mg PO QDAY PRN #1 tablet 07/21/21 Unknown Rx metroNIDAZOLE [Flagyl TAB] 500 mg PO Q12HR 7 Days #14 tab 07/21/21 Unknown Rx ED Physical Exam - General Limitations: No Limitations General appearance: alert, in no apparent distress - Head Head exam: Present: atraumatic, normocephalic - Eye Eye exam: Present: normal appearance. Absent: scleral icterus - Neck Neck exam: Present: normal inspection - Respiratory Respiratory exam: Present: normal lung sounds bilaterally. Absent: respiratory distress, chest wall tenderness - Cardiovascular Cardiovascular Exam: Present: regular rate - GI/Abdominal GI/Abdominal exam: Present: soft. Absent: distended, tenderness, guarding, rebound, rigid - Speculum exam: Present: vaginal discharge (Greenish). Absent: vaginal bleeding Bi-manual exam: Absent: cervical motion tendernes - Back Exam Back exam: Present: full ROM. Absent: tenderness, CVA tenderness (R), CVA tenderness (L) - Neurological Exam Neurological exam: Present: alert, oriented X3 - Psychiatric Psychiatric exam: Present: normal affect, normal mood - Skin Skin exam: Present: warm, dry, intact, normal color. Absent: rash ED Course Vital Signs 07/21/21 07/21/21 10:25 12:44 Temperature 99.4 F 98.1 F Pulse Rate 78 71 Respiratory 18 18 Rate Blood Pressure 117/73 Blood Pressure 125/84 [Left] O2 Sat by Pulse 99 99 Oximetry ED Medical Decision Making - Lab Data Lab Results 07/21/21 Range/Units 12:08 Urine Color Yellow (Yellow) Urine Turbidity Clear (Clear) Urine pH 6.0 (5.0-7.0) Ur Specific [place] 1.023 (1.003-1.030) Urine Protein <15 mg/dl (Negative) mg/dL Urine Glucose (UA) Neg (Negative) mg/dL Urine Ketones Neg (Negative) mg/dL Urine Blood Neg (Negative) Urine Nitrite Neg (Negative) Urine Bilirubin Neg (Negative) Urine Urobilinogen < 2.0 (<2.0) mg/dL Ur Leukocyte Esterase Neg (Negative) Urine WBC (Auto) 34.0 H (0.0-6.0) /HPF Urine RBC (Auto) 36.0 (0.0-6.0) /HPF U Epithel Cells (Auto) 41.0 H (0-13.0) /HPF Urine Bacteria (Auto) 1+ (Negative) /HPF Urine Mucus 3+ /HPF Urine HCG, Qual Negative (Negative) - Radiology Data Radiology results: report reviewed CHEST 2 VIEWS INDICATION / CLINICAL INFORMATION: Intermittent pain bilaterally at lung bases. COMPARISON: 09/18/19. FINDINGS: SUPPORT DEVICES: None. HEART / MEDIASTINUM: The heart size and pulmonary vasculature are normal. The aorta is normal in caliber. LUNGS / PLEURA: No significant pulmonary or pleural abnormality. No pneumothorax. ADDITIONAL FINDINGS: No significant additional findings. IMPRESSION: No acute abnormality or significant change. - Medical Decision Making 35-year-old -[place] female patient presents with complaints of vaginal discharge and lower abdominal cramping x1 week. She also admits to urinary frequency and states she believes she may have an STI. No abdominal pain at current per patient. She denies any vaginal bleeding or dyspareunia or fever/chills/sweats. No past medical history per patient. She also states pain bilaterally to her lower rib area anteriorly that occurs only with bending her thorax. She denies any chest pain or shortness of breath or cough. No recent long travel, hemoptysis, leg pain/swelling, hormone use, or history of DVT/PE/cancer per patient Wet prep shows trichomonas and bacterial vaginosis. Will also cover patient for gonorrhea and chlamydia. Chest x-ray is normal. Suspect pain is musculoskeletal in nature due to history given by patient and exam. Discussed in great detail signs and symptoms that should prompt immediate return to ED with patient who verbalizes understanding. Presumptive diagnosis and care plan were discussed in detail with patient. Recommend follow-up with the health department or primary care doctor for further STI testing. Patient is to refrain from sexual activity for approximately 3 weeks and inform her partner to also get tested and treated Critical care attestation.: If time is entered above; I have spent that time in minutes in the direct care of this critically ill patient, excluding procedure time. ED Disposition Clinical Impression: Trichomonal vaginitis, Bacterial vaginosis, Rib pain Disposition: HOME / SELF CARE / HOMELESS Is pt being admited?: No Condition: Stable Instructions: Nonspecific Chest Pain, Adult, Bacterial Vaginosis, [id number], Trichomoniasis, Bacterial Vaginosis (ED) Prescriptions: Fluconazole [Diflucan TAB] 200 mg PO QDAY PRN #1 tablet PRN Reason: yeast infection Doxycycline Monohydrate [Doxycycline Monohydrate CAP] 100 mg PO BID 7 Days #14 capsule metroNIDAZOLE [Flagyl TAB] 500 mg PO Q12HR 7 Days #14 tab Referrals: PRIMARY CARE, [Primary Care Provider] - 3-5 Days [facility] [Provider Group] - 3-[address] [facility] [Outside] - 3-5 Days Forms: STI Treatment and Prevention, Work/School Release Form(ED)
[2021-07-21 12:24] LABS: Bacteria,Urine 1+ /HPF (Negative); Bilirubin,Urine NEG (Negative); Blood,Urine NEG (Negative); Color,Urine Yellow (Yellow); Mucus,Urine 3+ /HPF; Protein,Urine <15 mg/dL mg/dL (Negative); Urobilinogen,Urine < 2.0 mg/dL (<2.0)
[2021-07-21 12:25] LABS: HCG Qualitative,Urine Negative (Negative)
[2021-07-21 12:45] VITALS: BP 125/84
[2021-07-21] MEDS ORDERED: LIDOCAINE-MPF (1%) 10 MG/1 ML VIAL 5 ML INFILTRATI ONE (13:17)
--- NOTE | 2021-07-21 13:43 | XRay Report ---
CHEST 2 VIEWS INDICATION / CLINICAL INFORMATION: Intermittent pain bilaterally at lung bases. COMPARISON: 09/18/19. FINDINGS: SUPPORT DEVICES: None. HEART / MEDIASTINUM: The heart size and pulmonary vasculature are normal. The aorta is normal in dyan rehana. LUNGS / PLEURA: No significant pulmonary or pleural abnormality. No pneumothorax. ADDITIONAL FINDINGS: No significant additional findings. IMPRESSION: No acute abnormality or significant change. Signer Name: Joe Merchant MD Signed: 07/21/2021 1:39 PM Workstation Name: [id number]
== END 2021-07-21 14:22 | disposition home or self-care (01) ==
LOC: ED 10:22
DX: A59.01 Trichomonal vulvovaginitis (principal); N76.0 Acute vaginitis; B96.89 Other specified bacterial agents as the cause of diseases classified elsewhere; Z88.0 Allergy status to penicillin; Z91.013 Allergy to seafood; Z79.899 Other long term (current) drug therapy
CPT/HCPCS: 71046; 81001; 81025; 87076; 87086; 87186; 87210; 96372; 99284; J0696; J3490